=== PATIENT | male | born 1955 | race Caucasian/White ===

== ENCOUNTER 2017-03-11 11:20 | Emergency (ER) | payer BC, OTHER ==
[2017-03-11 11:35] VITALS: RESP 18; TEMP 97.3
[2017-03-11 12:03] LABS: % IMMATURE GRANULYOCYTES 0.2 % (0.0-1.1); ABSOLUTE IMMATURE GRANULOCYTES 0.02 10^3/uL (0.00-0.10); ADD DIFF? NO; ADD MORPH? NO; ADD SCAN? NO; ATYPICAL LYMPHOCYTE FLAG 0 (0-99); FRAGMENT RBC FLAG 0 (0-99); HEMATOCRIT 45.1 % (40.0-51.0); HEMOGLOBIN 15.6 g/dL (13.7-17.5); LEFT SHIFT FLG 0 (0-99); LIPEMIA HEMOLYSIS FLAG 90 (0-99); MEAN CELL HEMOGLOBIN CONCENTR. 34.6 g/dL (32.4-36.7); MEAN CELL VOLUME 89.7 fL (81.5-99.8); MEAN PLATELET VOLUME 10.4 fL (8.7-11.7); PLATELET CLUMPS FLAG 0 (0-99); PLATELET COUNT 171 10^3/uL (150-400); RED BLOOD CELL COUNT 5.03 10^6/uL (4.40-6.38); RED CELL DISTRIBUTION WIDTH 13.1 % (11.5-15.2)
[2017-03-11 12:04] LABS: COLOR YELLOW; LEUKOCYTE ESTERASE,URINE NEGATIVE (NEGATIVE); NITRITE,URINE NEGATIVE (NEGATIVE); PH,URINE 5.5 (5.0-7.5)
--- NOTE | 2017-03-11 12:08 | EDPHY ---
H & P Stated Complaint: left groin bump started 2-3 days ago, report possible hernia Time Seen by Provider: 03/11/17 11:24 HPI/ROS: This patient complains of a painful left groin lump that is increased in size over the past 2 days. He 1st noticed it 3 days ago and he reports peak pain of 7/10 when he palpates the area or with certain movements. It is 3/10 achy in nature at baseline. 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 The pain does increase with lifting. He has not taken any pain medications for this ailment any notes no other exacerbating factors. He has noticed some redness to the skin overlying the area is concerned about potential infection. ROS: No fevers or chills. No other constitutional symptoms HEENT: No complaints Pulmonary: No complaints Cardiovascular: No heart palpitations or lightheadedness. No chest pain. GI: No nausea vomiting. He does have mild bloating he reports. He also reports a feeling of lower belly bowel discomfort for 2 days. He states he has an urge to defecate but then as unable to though he has had a normal bowel movement each day and no change in consistency. : He feels like it is hard to initiate his urinary stream than usual over the past 2 days. He is however still able to urinate. No dysuria. No urethral discharge. No testicle pain. Musculoskeletal: Complains of back pain that he feels is musculoskeletal due to sore muscles from heavy lifting. Integumentary: Read skin overlying the swollen area as noted in HPI. Otherwise negative. 10 point ROS is otherwise negative Source: Patient Exam Limitations: No limitations - Medical/Surgical History Hx Asthma: Yes Hx Cardiac Disease: Yes Other PMH: GA with 4 cardiac stents, high cholestrol, asthma, left shoulder replacement. Past surgical history: Appendectomy as a child - Family History Significant Family History: No pertinent family hx - Social History Smoking Status: Former smoker Alcohol Use: Occasionally Drug Use: None - Physical Exam Exam: General Appearance: Alert, no distress. Eyes: Pupils equal and round no pallor or injection. ENT, Mouth: Mucous membranes moist. Respiratory: There are no retractions, lungs are clear to auscultation. Cardiovascular: Regular rate and rhythm. Gastrointestinal: Normoactive, soft, no significant tenderness. However in the left inguinal area there is an area of focal swelling approximately 3 cm in size, mild swelling with no obvious fluctuance. There is overlying skin erythema also 3 cm in size and perhaps slight warmth to touch. : No testicular tenderness, swelling or epididymal tenderness. Circumcised penis with no urethral discharge skin lesions. Neurological: GCS 15 with no focal deficits. Skin: Warm and dry, no rashes. Musculoskeletal: Neck is supple nontender. Extremities are symmetrical, full range of motion. Psychiatric: Mood and affect are normal DIFFERENTIAL DIAGNOSIS: After history and physical exam differential diagnosis was considered for a direct inguinal hernia, early incarcerated hernia, cellulitis, Abscess, upper spermatocele, doubt vascular injury, aneurysm or pseudoaneurysm Constitutional: Initial Vital Signs Temperature (C) 36.3 C 03/11/17 11:33 Heart Rate 56 L 03/11/17 11:33 Respiratory Rate 18 03/11/17 11:33 Blood Pressure 159/86 H 03/11/17 11:33 O2 Sat (%) 96 03/11/17 11:33 O2 Delivery Mode Room Air Allergies/Adverse Reactions: rosuvastatin [From Crestor] Allergy (Verified 03/11/17 11:30) Home Medications: Medication Instructions Recorded Albuterol 03/11/17 Aspirin 03/11/17 Doxycycline Hyclate [Vibramycin 100 mg PO BID #20 cap 03/11/17 100 MG (*)] Dulera 200 Mcg/5 Mcg Inhaler 03/11/17 Lisinopril 03/11/17 Metoprolol Succinate 03/11/17 Plavix 03/11/17 Plavix 03/11/17 Simvastatin 03/11/17 Slo-Niacin 03/11/17 traMADol [Ultram 50 mg (*)] 50 - 100 mg PO Q4 PRN #20 tab 03/11/17 Medical Decision Making - Diagnostics Imaging Results: Ultrasound of this area by the electronic train control technician revealed a cyst-like structure subcutaneously in the area of symptoms. The radiologist states this is very small in size.-6 mm no evidence of hernia or other findings on the ultrasound. Imaging: Discussed imaging studies w/ yardage caller Radiologist Procedures: I explained to the patient that he may simply have a localized cellulitis but with the apparent small fluid collection on ultrasound question sister abscess he agreed to I&D. I&D abscess: After verbal consent I anesthetized the area of swelling with 1% plain lidocaine-3 mm in made a small T-shaped incision with a 11. Scalpel blade probing the area with a small hemostat finding fibrous tissue but no areas of fluctuance despite probing gently in for directions from the site of the incision approximately a cm in each direction. I also massage the area with no purulence. Patient tolerated this well. We applied a dressing and I counseled him regarding wound care. There were no complications. The procedure was performed by myself. ED Course/Re-evaluation: IV, NPO He declined analgesics Sent for ultrasound for further evaluation Patient's labs are essentially normal-CBC, basic metabolic panel and urinalysis Discussion: Isolated area of cellulitis with possible small sebaceous cyst or other that I was unable to drain versus simple cellulitis with [place] edema. Counseled patient regarding this. Will plan to treat him with a course of doxycycline antibiotic and follow up with General surgery if he has any ongoing symptoms despite the treatment plan. Although the history was concerning for possible inguinal hernia, ultrasound study revealed no evidence of hernia- only cutaneous findings. - Data Points Laboratory Results: Laboratory Results 03/11/17 11:58 03/11/17 11:58 Departure - Departure Disposition: Home, Routine, Self-Care Clinical Impression: Cellulitis of groin, left, Groin cyst Condition: Good Instructions: Cellulitis (ED) Additional Instructions: Diagnosis: Groin cellulitis 2. Groin cyst Despite the procedure today was unable to locate a fluid collection in the area of infection. Plan: Ibuprofen and Tylenol for pain control. Tramadol in addition if needed. No driving, alcohol or come tramadol Clean the wound daily with warm soapy water Doxycycline antibiotic. Yogurt or probiotic while on this to prevent diarrhea. Also, wear sunscreen if her outside as the doxycycline will make him more prone to sunburn. if you have any ongoing symptoms despite the treatment plan, follow up with Dr. Lemus-general surgeon for further evaluation and treatment. Return for any significant worsening despite the treatment plan Referrals: Rafael Ruiz DO [Primary Care Provider] - As per Instructions Eric Lemus MD [Medical Doctor] - As per Instructions Prescriptions: Doxycycline Hyclate [Vibramycin 100 MG (*)] 100 mg PO BID #20 cap traMADol [Ultram 50 mg (*)] 50 - 100 mg PO Q4 PRN #20 tab PRN Reason: breakthrough pain
[2017-03-11 12:20] LABS: ANION GAP 13 mEq/L (8-16); CALCIUM 9.8 mg/dL (8.5-10.4); CARBON DIOXIDE 23 mEq/l (22-31); CHLORIDE 102 mEq/L (97-110); GLOMERULAR FILTRATION RATE > 60; GLUCOSE 90 mg/dL (70-100); POTASSIUM 4.3 mEq/L (3.5-5.2); SODIUM 138 mEq/L (134-144)
[2017-03-11 12:59] VITALS: BP 108/76; PULSE 52; O2SAT 98
== END 2017-03-11 13:42 | disposition home or self-care (01) ==
LOC: CED 11:20
PROC: 0H9JXZZ Drainage of Left Upper Leg Skin, External Approach (ICD-10-PCS; principal; 2017-03-11)
DX: L03.314 Cellulitis of groin (principal); J45.909 Unspecified asthma, uncomplicated; I25.2 Old myocardial infarction; R19.09 Other intra-abdominal and pelvic swelling, mass and lump; Z79.82 Long term (current) use of aspirin; Z87.891 Personal history of nicotine dependence; Z95.5 Presence of coronary angioplasty implant and graft
CPT/HCPCS: 76882-PO; 80048-PO; 81003-PO; 85025-PO